=== PATIENT | female | born 1990 | race Caucasian/White ===

== ENCOUNTER 2018-01-16 23:44 | Outpatient (CLI) | payer BC, MEDICAID ==
[2018-01-17 00:53] LABS: APPEARANCE,URINE CLEAR; BILIRUBIN,URINE NEGATIVE (NEGATIVE); COLOR,URINE STRAW; GLUCOSE, URINE NEGATIVE (NEGATIVE); KETONES,URINE NEGATIVE (NEGATIVE); LEUKOCYTE ESTERASE,URINE NEGATIVE (NEGATIVE); NITRITE,URINE NEGATIVE (NEGATIVE); PROTEIN,URINE NEGATIVE (NEGATIVE); URINE SPECIFIC GRAVITY 1.009; UROBILINOGEN,URINE NEGATIVE mg/dL (<2.0)
[2018-01-17 01:05] LABS: URINE AMPHETAMINES SCREEN NEGATIVE; URINE BARBITURATES SCREEN NEGATIVE; URINE BENZODIAZEPINES SCREEN NEGATIVE; URINE COCAINE SCREEN NEGATIVE; URINE MARIJUANA (THC) SCREEN NEGATIVE; URINE METHADONE SCREEN NEGATIVE; URINE PHENCYCLIDINE SCREEN NEGATIVE
== END 2018-01-17 01:15 | disposition home or self-care (01) ==
LOC: LC 23:44
PROVIDERS: ATTEND Obstetrics & Gynecology
PROC: 4A1HXCZ Monitoring of Products of Conception, Cardiac Rate, External Approach (ICD-10-PCS; principal; 2018-01-16)
DX: O47.02 False labor before 37 completed weeks of gestation, second trimester (principal); Z3A.20 20 weeks gestation of pregnancy
CPT/HCPCS: 80307; 81001; 82962; 84112

== ENCOUNTER 2018-03-04 19:26 | Outpatient (CLI) | payer BC, MEDICAID ==
[2018-03-04 20:15] LABS: APPEARANCE,URINE CLEAR; BILIRUBIN,URINE NEGATIVE (NEGATIVE); COLOR,URINE YELLOW; GLUCOSE, URINE NEGATIVE (NEGATIVE); KETONES,URINE NEGATIVE (NEGATIVE); LEUKOCYTE ESTERASE,URINE NEGATIVE (NEGATIVE); NITRITE,URINE NEGATIVE (NEGATIVE); PROTEIN,URINE NEGATIVE (NEGATIVE); URINE SPECIFIC GRAVITY 1.026; UROBILINOGEN,URINE NEGATIVE mg/dL (<2.0)
[2018-03-04 20:32] LABS: URINE AMPHETAMINES SCREEN NEGATIVE; URINE BARBITURATES SCREEN NEGATIVE; URINE BENZODIAZEPINES SCREEN NEGATIVE; URINE COCAINE SCREEN NEGATIVE; URINE MARIJUANA (THC) SCREEN NEGATIVE; URINE METHADONE SCREEN NEGATIVE; URINE PHENCYCLIDINE SCREEN NEGATIVE
== END 2018-03-04 20:54 | disposition home or self-care (01) ==
LOC: LC 19:26
PROVIDERS: ATTEND Obstetrics & Gynecology Gynecology
PROC: 4A1HXCZ Monitoring of Products of Conception, Cardiac Rate, External Approach (ICD-10-PCS; principal; 2018-03-04)
DX: O47.02 False labor before 37 completed weeks of gestation, second trimester (principal); Z3A.27 27 weeks gestation of pregnancy
CPT/HCPCS: 81001; 59899; 80307; Q0114

== ENCOUNTER 2018-05-01 08:31 | Outpatient (CLI) | payer BC, MEDICAID ==
--- NOTE | 2018-05-01 09:24 | Non Stress Test Report ---
Non Stress Test Datetime Report Generated by CPN: 05/01/2018 09:24 DEMOGRAPHIC EGA NST: 35.5 INDICATION Indication for Study: Ordered by Provider MONITORING Monitor Explained: Monitor Explained; Test Explained; Patient Verbalized Understanding Time on Monitor: 05/01/2018 08:47 Time off Monitor: 05/01/2018 09:07 NST Duration: 20 NST INTERVENTIONS NST Interventions: PO Hydration Physician Notified NST: C Kruse, CNM BABY A: [id number] BABY A Movement : Present; Decreased Contraction Frequency : none FHR Baseline : 140 Accelerations : 15X15 Decelerations : None Variability : Moderate 6-25bpm NST Review: Meets Criteria for Reactive NST NST Review and Verified By : Radha Rufus RNC NST Results: Reactive NST REPORT Report Trigger: Send Report
== END 2018-05-01 09:27 | disposition home or self-care (01) ==
LOC: LC 08:31
PROVIDERS: ATTEND Student in an Organized Health Care Education/Training Program
PROC: 4A1HXCZ Monitoring of Products of Conception, Cardiac Rate, External Approach (ICD-10-PCS; principal; 2018-05-01)
DX: O36.8130 Decreased fetal movements, third trimester, not applicable or unspecified (principal); Z3A.35 35 weeks gestation of pregnancy
CPT/HCPCS: 59025

== ENCOUNTER 2018-05-25 18:46 | Outpatient (CLI) | payer BC, MEDICAID ==
[2018-05-25 19:34] LABS: APPEARANCE,URINE CLEAR; BILIRUBIN,URINE NEGATIVE (NEGATIVE); COLOR,URINE YELLOW; GLUCOSE, URINE NEGATIVE (NEGATIVE); KETONES,URINE NEGATIVE (NEGATIVE); LEUKOCYTE ESTERASE,URINE NEGATIVE (NEGATIVE); NITRITE,URINE NEGATIVE (NEGATIVE); PROTEIN,URINE NEGATIVE (NEGATIVE); URINE SPECIFIC GRAVITY 1.013; UROBILINOGEN,URINE NEGATIVE mg/dL (<2.0)
[2018-05-25 19:49] LABS: URINE AMPHETAMINES SCREEN NEGATIVE; URINE BARBITURATES SCREEN NEGATIVE; URINE BENZODIAZEPINES SCREEN NEGATIVE; URINE COCAINE SCREEN NEGATIVE; URINE MARIJUANA (THC) SCREEN NEGATIVE; URINE METHADONE SCREEN NEGATIVE; URINE PHENCYCLIDINE SCREEN NEGATIVE
--- NOTE | 2018-05-25 20:47 | Non Stress Test Report ---
Non Stress Test Datetime Report Generated by CPN: 05/25/2018 20:47 DEMOGRAPHIC EGA NST: 39.1 INDICATION Indication for Study: Ordered by Provider MONITORING Monitor Explained: Monitor Explained; Test Explained; Patient Verbalized Understanding Time on Monitor: 05/25/2018 19:10 Time off Monitor: 05/25/2018 19:35 NST Duration: 25 NST INTERVENTIONS NST Interventions: PO Hydration Physician Notified NST: Dr. Singh BABY A: [id number] BABY A Movement : Present Contraction Frequency : 1.5-3 FHR Baseline : 125 Accelerations : 15X15 Decelerations : None Variability : Moderate 6-25bpm NST Review: Meets Criteria for Reactive NST NST Review and Verified By : MELISSA CHOI Results: Reactive NST REPORT Report Trigger: Send Report
[2018-05-25] MEDS ORDERED: HYDROXYZINE PAMOATE 50 MG CAPSULE PO ONE (20:48)
[2018-05-25] MEDS: HYDROXYZINE PAMOATE 50 MG CAPSULE ONE (20:54)
== END 2018-05-25 20:55 | disposition home or self-care (01) ==
LOC: LC 18:46
PROVIDERS: ATTEND Obstetrics & Gynecology Gynecology
DX: Z34.90 Encounter for supervision of normal pregnancy, unspecified, unspecified trimester (principal)
CPT/HCPCS: 59025; 80307; 81005

== ENCOUNTER 2018-05-26 23:18 | Outpatient (CLI) | payer BC, MEDICAID ==
[2018-05-26 23:43] LABS: APPEARANCE,URINE CLOUDY; BILIRUBIN,URINE NEGATIVE (NEGATIVE); COLOR,URINE YELLOW; GLUCOSE, URINE >=500 mg/dL (NEGATIVE); KETONES,URINE 20 mg/dL (NEGATIVE); LEUKOCYTE ESTERASE,URINE TRACE (NEGATIVE); NITRITE,URINE NEGATIVE (NEGATIVE); PROTEIN,URINE NEGATIVE (NEGATIVE)
[2018-05-27 00:03] LABS: URINE AMPHETAMINES SCREEN NEGATIVE; URINE BARBITURATES SCREEN NEGATIVE; URINE BENZODIAZEPINES SCREEN NEGATIVE; URINE COCAINE SCREEN NEGATIVE; URINE MARIJUANA (THC) SCREEN NEGATIVE; URINE METHADONE SCREEN NEGATIVE; URINE PHENCYCLIDINE SCREEN NEGATIVE
--- NOTE | 2018-05-27 00:08 | Non Stress Test Report ---
Non Stress Test Datetime Report Generated by CPN: 05/27/2018 00:08 DEMOGRAPHIC EGA NST: 39.2 INDICATION Indication for Study: Ordered by Provider URINE RESULTS Urine Protein, NST: Negative Urine Ketones - NST: Positive Urine Glucose - NST: Positive MONITORING Monitor Explained: Monitor Explained; Test Explained; Patient Verbalized Understanding Time on Monitor: 05/26/2018 23:22 Time off Monitor: 05/27/2018 00:06 NST Duration: 44 NST INTERVENTIONS NST Interventions: None BABY A: [id number] BABY A Movement : Present Contraction Frequency : uterine irritability FHR Baseline : 140 Accelerations : 15X15 Decelerations : None Variability : Moderate 6-25bpm NST Review: Meets Criteria for Reactive NST NST Review and Verified By : Herbie López RN NST Results: Reactive NST REPORT Report Trigger: Send Report
[2018-05-27] MEDS ORDERED: HYDROXYZINE PAMOATE 50 MG CAPSULE PO ONE (00:14)
[2018-05-27] MEDS ORDERED: RINGERS SOLUTION,LACTATED 1,000 ML IV ONE (00:15)
[2018-05-27] MEDS ORDERED: HYDROXYZINE PAMOATE 50 MG CAPSULE ONE (00:16)
== END 2018-05-27 01:41 | disposition home or self-care (01) ==
LOC: LC 23:18
PROVIDERS: ATTEND Obstetrics & Gynecology
PROC: 4A1HXCZ Monitoring of Products of Conception, Cardiac Rate, External Approach (ICD-10-PCS; principal; 2018-05-26)
DX: O47.1 False labor at or after 37 completed weeks of gestation (principal); Z3A.39 39 weeks gestation of pregnancy
CPT/HCPCS: 59025; 80307; 81005; 84112

== ENCOUNTER 2018-06-01 22:10 | Outpatient (CLI) | payer BC, MEDICAID ==
[2018-06-01 22:30] LABS: APPEARANCE,URINE CLEAR; BILIRUBIN,URINE NEGATIVE (NEGATIVE); COLOR,URINE STRAW; GLUCOSE, URINE NEGATIVE (NEGATIVE); KETONES,URINE NEGATIVE (NEGATIVE); LEUKOCYTE ESTERASE,URINE NEGATIVE (NEGATIVE); NITRITE,URINE NEGATIVE (NEGATIVE); PROTEIN,URINE NEGATIVE (NEGATIVE); URINE SPECIFIC GRAVITY 1.003; UROBILINOGEN,URINE NEGATIVE mg/dL (<2.0)
[2018-06-01 22:45] LABS: URINE AMPHETAMINES SCREEN NEGATIVE; URINE BENZODIAZEPINES SCREEN NEGATIVE; URINE COCAINE SCREEN NEGATIVE; URINE MARIJUANA (THC) SCREEN NEGATIVE; URINE METHADONE SCREEN NEGATIVE; URINE PHENCYCLIDINE SCREEN NEGATIVE
[2018-06-01 22:49] LABS: URINE BARBITURATES SCREEN UNCONFIRMED POSITIVE
[2018-06-01] MEDS ORDERED: HYDROXYZINE PAMOATE 50 MG CAPSULE PO ONE (23:37)
[2018-06-01] MEDS ORDERED: HYDROXYZINE PAMOATE 50 MG CAPSULE ONE (23:39)
--- NOTE | 2018-06-02 00:21 | Non Stress Test Report ---
Non Stress Test Datetime Report Generated by CPN: 06/02/2018 00:21 DEMOGRAPHIC EGA NST: 40.1 INDICATION Indication for Study: Ordered by Provider MONITORING Monitor Explained: Monitor Explained; Test Explained; Patient Verbalized Understanding Time on Monitor: 06/01/2018 22:25 Time off Monitor: 06/02/2018 23:45 NST Duration: 1520 NST INTERVENTIONS NST Interventions: PO Hydration Physician Notified NST: Ethan BABY A: [id number] BABY A Movement : Present Contraction Frequency : 2-6 FHR Baseline : 125 Accelerations : 15X15 Decelerations : None Variability : Moderate 6-25bpm NST Review: Meets Criteria for Reactive NST NST Review and Verified By : alma guillen NST REPORT Report Trigger: Send Report
== END 2018-06-01 23:58 | disposition home or self-care (01) ==
LOC: LC 22:10
PROVIDERS: ATTEND Obstetrics & Gynecology
PROC: 4A1HXCZ Monitoring of Products of Conception, Cardiac Rate, External Approach (ICD-10-PCS; principal; 2018-06-01)
DX: O47.1 False labor at or after 37 completed weeks of gestation (principal); O48.0 Post-term pregnancy; Z3A.40 40 weeks gestation of pregnancy
CPT/HCPCS: 59025; 81005; 80307; 80345; G0480

== ENCOUNTER 2018-06-08 12:53 | Inpatient (IN) | payer BC, MEDICAID ==
[2018-06-08 14:57] LABS: APPEARANCE,URINE SLIGHTLY-CLOUDY; BILIRUBIN,URINE NEGATIVE (NEGATIVE); COLOR,URINE YELLOW; GLUCOSE, URINE NEGATIVE (NEGATIVE); KETONES,URINE NEGATIVE (NEGATIVE); LEUKOCYTE ESTERASE,URINE TRACE (NEGATIVE); NITRITE,URINE NEGATIVE (NEGATIVE); PROTEIN,URINE NEGATIVE (NEGATIVE); URINE SPECIFIC GRAVITY 1.017; UROBILINOGEN,URINE NEGATIVE mg/dL (<2.0)
--- NOTE | 2018-06-08 15:02 | Admission Physical ---
Datetime Report Generated by CPN: 06/08/2018 15:01 CURRENT ADMISSION Hx Assessment: The History has been Reviewed and is Current Chief Complaint: Uterine Contractions Indication for Induction: Not Applicable Admit Impression : Postterm, Intrauterine ; Active Labor Admit Plan: Admit to Unit; Initiate Labor Protocol ALLERGIES Medication Allergies: No Medication Allergies: No Known Allergies (05/25/2018) Latex: No Latex Allergies Food Allergies: n/a Environmental Allergies: n/a OBSTETRICAL HISTORY EDC: 05/31/2018 00:00 : 5 Para: 1 Term: 1 IAB: 3 Ectopic: 0 Livin Cesareans: 0 VBACs: 0 Multiple Births: 0 Gestational Diabetes: No Rh Sensitization: No Incompetent Cervix: No JAKI: No Infertility: No ART Treatment: No Uterine Anomaly: No IUGR: No Hx Previous C/S: No Macrosomia: No Hx Loss/Stillborn: No PIH: No Hx : No Placenta Previa/Abruption: No Depression/PP Depression: No PTL/PROM: No Post Hemorrhage: No Current Procedures: Ultrasound Obstetrical History Comments: G1 G2 G3 G4 G5 - current SEE RECORDS Alcohol: No Marijuana : No Cocaine: No Other Illicit Drugs: No Cigarettes: Never Smoker. 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 Heart Disease: No Hosp/Surgery: Yes Autoimmune Disorder: No Anesthetic Complications: No Kidney Disease: No Abnormal Pap Smear: No Neuro/Epilepsy: No Psychiatric Disorders: No Other Medical Diseases: No Hepatitis/Liver Disease: No Significant Family History: No Varicosities/Phlebitis: No Trauma/Violence : No Thyroid Dysfunction: No Medical History Comments: tonsilectomy, urethral injury, childbirth INFECTIOUS HISTORY Gonorrhea: No Genital Herpes: No Chlamydia: No Tuberculosis: No Syphilis: No Hepatitis: No HIV/AIDS Exposure: No Rash or Viral Illness: No HPV: No PHYSICAL EXAM General: Normal HEENT: Normal Neurologic: Normal Thyroid: Normal Heart: Normal Lungs: Normal Breast: Normal Back: Normal Abdomen: Normal Genitourinary Exam: Normal Extremities: Normal DTRs: Normal Pelvic Type: Adequate Physical Exam Comments: GBS neg Pelvis proven 7 lbs MEMBRANES Membranes: Intact FETUS A EGA: 41.1 Monitoring: External US Accelerations: 15X15 Decelerations: None FHR Category: Category I Admit Comment: Pt admitted in labor, was waiting at home to be called in for IOL, uc's q2-4, Cat 1 strip POC discussed GBS neg, POC discussed with Dr. Godfrey PLANS FOR LABOR AND DELIVERY Labor and Delivery: None Pain Management: Epidural Feeding Preference: Breast Benefit of Breast Feed Discussed: Yes Circumcision: N/A INFORMED CONSENT Assignment: Renzo Godfrey MD Signature: with User ID: Charlotte : with User ID: Charlotte
[2018-06-08] MEDS ORDERED: RINGERS SOLUTION,LACTATED 1,000 ML IV PRN (15:10)
[2018-06-08] MEDS ORDERED: RINGERS SOLUTION,LACTATED 1,000 ML IV ONE (15:10)
[2018-06-08 15:29] LABS: URINE AMPHETAMINES SCREEN NEGATIVE; URINE BENZODIAZEPINES SCREEN NEGATIVE; URINE COCAINE SCREEN NEGATIVE; URINE MARIJUANA (THC) SCREEN NEGATIVE; URINE METHADONE SCREEN NEGATIVE; URINE PHENCYCLIDINE SCREEN NEGATIVE
[2018-06-08 15:34] LABS: URINE BARBITURATES SCREEN UNCONFIRMED POSITIVE
[2018-06-08] MEDS ORDERED: ONDANSETRON HCL INJ/PF 4 MG/2 ML SDV ONE (15:45)
[2018-06-08 16:16] LABS: ABSOLUTE LYMPHOCYTES (AUTO) 1.6 10^3/uL (0.5-4.7); ABSOLUTE MONOCYTES (AUTO) 0.6 10^3/uL (0.1-1.4); ABSOLUTE NEUT (AUTO) 14.3 10^3/uL (1.7-8.2); BASOPHILS % (AUTO) 0.3 % (0-2); EOSINOPHILS % (AUTO) 0.2 % (0-6); HEMATOCRIT 33.5 % (36.0-47.0); HEMOGLOBIN 11.3 g/dL (12.0-15.5); LYMPHOCYTES % (AUTO) 9.9 % (13-45); MEAN CORPUSCULAR HEMOGLOBIN 30.1 pg (27.0-33.4); MEAN CORPUSCULAR HGB CONC 33.9 g/dL (32.0-36.0); MEAN CORPUSCULAR VOLUME 89 fl (80-97); MONOCYTES % (AUTO) 3.5 % (3-13); PLATELET COUNT 228 10^3/uL (150-450); RED BLOOD COUNT 3.77 10^6/uL (3.72-5.28); RED CELL DISTRIBUTION WIDTH 14.6 % (11.5-14.0); SEGMENTED NEUTROPHILS % (AUTO) 86.1 % (42-78); TOTAL CELLS COUNTED % (AUTO) 100 %; WHITE BLOOD COUNT 16.6 10^3/uL (4.0-10.5)
[2018-06-08] MEDS ORDERED: ONDANSETRON HCL INJ/PF 4 MG/2 ML SDV IV ONE (16:30)
[2018-06-08] MEDS ORDERED: FENTANYL CITRATE INJ/PF 100 MCG/2 ML AMPUL ONE (16:41)
[2018-06-08] MEDS ORDERED: EPHEDRINE SULFATE INJ 50 MG/1 ML AMPULE ONE (16:41)
[2018-06-08] MEDS ORDERED: PHENYLEPHRINE HCL INJ/PF 10 MG/1 ML SDV ONE (16:41)
[2018-06-08] MEDS ORDERED: BUPIVACAINE HCL 0.25 % INJ/PF (2.5 MG/1 ML) 30 ML VIAL ONE (16:41)
[2018-06-08] MEDS ORDERED: FENTANYL/BUPIVACAINE/NS/PF 300 MCG/150 ML RTUINJ EPI ONE (16:42)
[2018-06-08] MEDS ORDERED: LIDOCAINE 1.5%/EPINEPHRINE INJ-PF 30 ML SDV ONE (16:43)
--- NOTE | 2018-06-08 16:51 | L&D Progress Notes ---
PROGRESS NOTES Datetime Report Generated by CPN: 06/08/2018 16:50 PROGRESS NOTE Comment: pt crying out in pain SROM, clear fluid, waiting for epidural, IV bolus, cx unchanged LAST VAGINAL EXAM-NURSING Dilitation: 3.0 Dilitation: 4.0 Dilitation: 3.5 Dilitation: unchanged Dilitation: 1.5 Dilitation: 1.0 Dilitation: 1.0 Dilitation: unchanged Dilitation: 1.0 Effacement: 90 Effacement: 100 Effacement: 90 Effacement: 60 Effacement: 25 Effacement: 25 Effacement: 25 Station: 0 Station: 0 Station: 0 Station: -2 Station: -2 Station: -2 Station: -2 Contractions: x3 Contractions: utd. will adjust monitor Contractions: uterine irritability Contractions: uterine irritability Contractions: uterine irritability Contractions: pt unsure Contractions: Uterine Irritability MEMBRANES Membranes: Intact FETUS A : 41.1 SIGNATURE SIGNATURE: [id number];[id number];[id number] SIGNATURE: [id number];14,[id number] SIGNATURE: [id number] SIGNATURE: [id number] SIGNATURE: 14,[id number] SIGNATURE: 14,[id number] Assignment: Renzo Godfrey MD Signature: with User ID: [email or web address] : with User ID: [email or web address]
[2018-06-08] MEDS ORDERED: MISOPROSTOL 0.2 MG TABLET ONE (16:54)
[2018-06-08] MEDS ORDERED: OXYTOCIN/NORMAL SALINE 20 UNIT/1,000 ML RTUINJ ONE (16:54)
[2018-06-08] MEDS ORDERED: LIDOCAINE 1% INJ-PF (10 MG/ML) 30 ML SDV ONE (16:54)
[2018-06-08] MEDS ORDERED: ACETAMINOPHEN WITH CODEINE #3 TABLET PO PRN (21:08)
[2018-06-08] MEDS ORDERED: GLYCERIN/WITCH HAZEL LEAF 1 EACH MED..PAD TP PRN (21:08)
[2018-06-08] MEDS ORDERED: BENZOCAINE/MENTHOL AEROSOL SPRAY 56 ML TOP PRN (21:08)
[2018-06-08] MEDS ORDERED: PROMETHAZINE HCL 25 MG SUPP.RECT PR PRN (21:08)
[2018-06-08] MEDS ORDERED: DIBUCAINE 1% OINTMENT 28 GM TP PRN (21:08)
[2018-06-08] MEDS ORDERED: NA PHOS,M-B/NA PHOS,DI-BA (ADULT) 133 ML ENEMA PR PRN (21:08)
[2018-06-08] MEDS ORDERED: DIPHENHYDRAMINE HCL 25 MG CAPSULE PO PRN (21:08)
[2018-06-08] MEDS ORDERED: MEASLES,MUMPS&RUBELLA VACC/PF 0.5 ML VIAL SUBCUT PRN (21:08)
[2018-06-08] MEDS ORDERED: PSEUDOEPHEDRINE HCL 30 MG TABLET PO PRN (21:08)
[2018-06-08] MEDS ORDERED: PROMETHAZINE HCL 25 MG TABLET PO PRN (21:08)
[2018-06-08] MEDS ORDERED: MAGNESIUM HYDROXIDE SUSP 30 ML UDCUP PO PRN (21:08)
[2018-06-08] MEDS ORDERED: OXYTOCIN/NORMAL SALINE 20 UNIT/1,000 ML RTUINJ IV PRN (21:08)
[2018-06-08] MEDS ORDERED: ZOLPIDEM TARTRATE 5 MG TABLET PO PRN (21:08)
[2018-06-08] MEDS ORDERED: DIPH/PERTUSS(ACELL)/TETANUS VAC/PF 0.5 ML SYR (>=10YO) IM PRN (21:08)
[2018-06-08] MEDS ORDERED: ACETAMINOPHEN 650 MG SUPP.RECT PR PRN (21:08)
[2018-06-08] MEDS ORDERED: PROMETHAZINE HCL INJ 25 MG/1 ML VIAL IV PRN (21:08)
--- NOTE | 2018-06-08 21:21 | Warning Signs in Babies ---
VOD Warning Signs Datetime Report Generated by [facility]: 06/08/2018 21:21 VOD#608 -Warning Signs in Babies: Viewed with Parent(s)/Family (01/16/2018 23:45:ELIO Marion )
[2018-06-08] MEDS ORDERED: IBUPROFEN 800 MG TABLET ONE (21:45)
[2018-06-08] MEDS ORDERED: FAMOTIDINE 20 MG TABLET ONE (21:45)
[2018-06-08] MEDS: FAMOTIDINE 20 MG TABLET PO SCH (21:46)
[2018-06-08] MEDS: IBUPROFEN 800 MG TABLET PO SCH (21:46)
--- NOTE | 2018-06-09 00:19 | Delivery Summary ---
Del Sum A-C Datetime Report Generated by CPN: 06/09/2018 00:19 DELIVERY PERSONNEL DELIVERY PERSONNEL: [id number] Delivery Doctor:: Renzo Godfrey MD Labor and Delivery Nurse:: Linda James RNspray mixer Nurse:: Blanche Shahid RN Sales And Service Specialist/COUNTER HAND: Audi MONIKA ValentineA MATERNAL INFORMATION Delivery Anesthesia: Epidural Medications After Delivery: Pitocin Bolus-Please Comment Meds After Delivery Comment: Pitocin 20mu in 1000LR bolus Estimated Blood Loss (ml): 250 Maternal Complications: None LABOR SUMMARY EDC: 05/31/2018 00:00 No. Babies in Womb: 1 Attempted: No Labor Anesthesia: Epidural LABOR INFORMATION Reason for Induction: Post Dates Onset of Labor: 06/08/2018 17:44 Complete Dilatation: 06/08/2018 20:37 Oxytocin: N/A Group B Beta Strep: negative Antibiotics # of Doses: na Antibiotics Time of Last Dose: na Name of Antibiotic Given: na Steroids Given: None Reason Steroids Not Administered: Not Applicable MEMBRANES Membranes Rupture Method: Spontaneous Rupture of Membranes: 06/08/2018 16:20 Length of Rupture (hr): 4.52 Amniotic Fluid Color: Clear Amniotic Fluid Amount: Moderate Amniotic Fluid Odor: Normal STAGES OF LABOR Stage 1 hr: 2 Stage 1 min: 53 Stage 2 hr: 0 Stage 2 min: 14 Stage 3 hr: 0 Stage 3 min: 5 Total Time in Labor hr: 3 Total Time in Labor min: 12 VAGINAL DELIVERY Episiotomy: None Laceration #1: None Laceration Extension #1: N/A Laceration Repair: Not Applicable Sponge Count Correct: Vaginal Sweep Performed Sharps Count Correct: Yes CSECTION DELIVERY Primary Indication: N/A Secondary Indication: N/A CSection Incidence: N/A Labor: N/A Elective: N/A CSection Incision: N/A BABY A INFORMATION Delivery Date/Time: 06/08/2018 20:51 Method of Delivery: Vaginal Born in Route : No : N/A Forceps: N/A Vacuum Extraction: N/A Shoulder Dystocia : No PRESENTATION/POSITION BABY A Presentation: Cephalic Cephalic Presentation: Vertex Vertex Position: Left Occipital Anterior Breech Presentation: N/A PLACENTA INFORMATION BABY A Placenta Delivery Time : 06/08/2018 20:56 Placenta Method of Delivery: Spontaneous Placenta Status: Delivered SCORES BABY A Heart Rate 1 min: >100 bpm Resp Effort 1 min: Good Cry Reflex Irritability 1 min: Cough or Sneeze or Pulls Away Muscle Tone 1 min: Active Motion Color 1 min: Body [place], Extremities Blue Resuscitation Effort 1 min: Tactile Stimulation SCORE 1 MIN: 9 Heart Rate 5 min: >100 bpm Resp Effort 5 min: Good Cry Reflex Irritability 5 min: Cough or Sneeze or Pulls Away Muscle Tone 5 min: Active Motion Color 5 min: Body [place], Extremities Blue Resuscitation Effort 5 min: Tactile Stimulation SCORE 5 MIN: 9 INFANT INFORMATION BABY A Gestational Age at Delivery: 41.1 Gestational Status: Late Term- 41- 41.6 Weeks Infant Outcome : Liveborn Condition : Stable Infant Sex: Female IDENTIFICATION BABY A Infant Verification Date/Time: 06/08/2018 21:03 ID Band Number: [id number] Mother's Name Verified: Yes RN Verifying : SVance, RN Additional Verifying Personnel: LAURA Robles WEIGHT/LENGTH BABY A Birthweight (gm): 3645 Infant Weight (lb): 8 Infant Weight (oz): 1 Length (in): 20.00 Infant Length (cm): 50.80 CORD INFORMATION BABY A No. Cord Vessels: 3 Nuchal Cord : N/A Cord Blood Taken: Yes-For Storage (Mom's Blood type +) Infant Suction: Mouth; Nose ASSESSMENT BABY A Infant Complications: None Physical Findings at Delivery: Within Normal Limits Infant Respirations: Appears Normal Skin to Skin: Yes Skin to Skin Time (min): 60 Installation Tech/ALS Called : No Transferred To: Remains with Mother BABY B INFORMATION : N/A SIGNATURES Signature: with User ID: Adria
[2018-06-09 06:27] LABS: HEMATOCRIT 30.5 % (36.0-47.0); HEMOGLOBIN 10.3 g/dL (12.0-15.5); MEAN CORPUSCULAR HGB CONC 33.9 g/dL (32.0-36.0); MEAN CORPUSCULAR VOLUME 86 fl (80-97); PLATELET COUNT 214 10^3/uL (150-450); RED BLOOD COUNT 3.57 10^6/uL (3.72-5.28); RED CELL DISTRIBUTION WIDTH 14.7 % (11.5-14.0); WHITE BLOOD COUNT 17.6 10^3/uL (4.0-10.5)
[2018-06-09] MEDS: IBUPROFEN 800 MG TABLET PO SCH ×3 (06:31→22:14)
[2018-06-09] MEDS: ACETAMINOPHEN WITH CODEINE #3 TABLET PO PRN ×3 (08:16→23:18)
[2018-06-09] MEDS: FERROUS SULFATE 325 MG TABLET PO SCH ×2 (09:50→17:40)
[2018-06-09] MEDS: DOCUSATE SODIUM 100 MG CAPSULE PO SCH ×2 (09:50→17:40)
[2018-06-09] MEDS: SENNOSIDES/DOCUSATE 8.6-50 MG 1 EACH TABLET PO SCH (09:50)
[2018-06-09] MEDS: PRENATAL VITAMIN W DHA CAPSULE PO SCH (09:50)
[2018-06-09] MEDS: FAMOTIDINE 20 MG TABLET PO SCH ×2 (09:51→22:14)
--- NOTE | 2018-06-09 10:12 | PDOC PROGRESS REPORT ---
Subjective-OB Progress Note for:: 06/09/18 Subjective: Doing well, no c/o, voiding, scant bleeding, Physical Exam (OB) Vital Signs: Temp Pulse Resp BP Pulse Ox 98.7 F 121 H 16 127/72 H 97 06/08/18 23:11 06/08/18 23:11 06/08/18 23:11 06/08/18 23:11 06/08/18 23:11 Intake & Output 06/08/18 06/09/18 06/10/18 06:59 06:59 06:59 Weight 107.1 kg - Lochia Lochia Amount: Small 10-25 ml Lochia Color: Rubra/Red - Abdomen Description: Soft, Round Hernia Present: No Fundal Description: Firm, Midline Fundal Height: u/u - u/2 Objective-Diagnostic Laboratory: 06/09/18 06:12 06/08/18 06/08/18 06/08/18 13:00 15:54 15:54 WBC 16.6 H RBC 3.77 Hgb 11.3 L Hct 33.5 L MCV 89 MCH 30.1 MCHC 33.9 RDW 14.6 H Plt Count 228 Seg Neutrophils % 86.1 H Lymphocytes % 9.9 L Monocytes % 3.5 Eosinophils % 0.2 Basophils % 0.3 Absolute Neutrophils 14.3 H Absolute Lymphocytes 1.6 Absolute Monocytes 0.6 Absolute Eosinophils 0.0 Absolute Basophils 0.0 Urine Color YELLOW Urine Appearance SLIGHTLY-CLOUDY Urine pH 7.0 Ur Specific [place] 1.017 Urine Protein NEGATIVE Urine Glucose (UA) NEGATIVE Urine Ketones NEGATIVE Urine Blood NEGATIVE Urine Nitrite NEGATIVE Ur Leukocyte Esterase TRACE H Blood Type A POSITIVE Antibody Screen NEGATIVE 06/09/18 06:12 WBC 17.6 H RBC 3.57 L Hgb 10.3 L Hct 30.5 L MCV 86 MCH 29.0 MCHC 33.9 RDW 14.7 H Plt Count 214 Seg Neutrophils % Lymphocytes % Monocytes % Eosinophils % Basophils % Absolute Neutrophils Absolute Lymphocytes Absolute Monocytes Absolute Eosinophils Absolute Basophils Urine Color Urine Appearance Urine pH Ur Specific [place] Urine Protein Urine Glucose (UA) Urine Ketones Urine Blood Urine Nitrite Ur Leukocyte Esterase Blood Type Antibody Screen Assessment and Plan(PN) - Assessment and Plan (1) Normal vaginal delivery Is this a current diagnosis for this admission?: Yes - Time Spent with Patient Time with patient: Less than 15 minutes Medications reviewed and adjusted accordingly: Yes - Disposition Anticipated Discharge: Home Within: within 24 hours
[2018-06-10] MEDS: IBUPROFEN 800 MG TABLET PO SCH (05:31)
[2018-06-10 08:10] VITALS: BP 133/88
[2018-06-10] MEDS: PRENATAL VITAMIN W DHA CAPSULE PO SCH (09:06)
[2018-06-10] MEDS: SENNOSIDES/DOCUSATE 8.6-50 MG 1 EACH TABLET PO SCH (09:07)
[2018-06-10] MEDS: DOCUSATE SODIUM 100 MG CAPSULE PO SCH (09:07)
[2018-06-10] MEDS: FAMOTIDINE 20 MG TABLET PO SCH (09:07)
[2018-06-10] MEDS: FERROUS SULFATE 325 MG TABLET PO SCH (09:07)
--- NOTE | 2018-06-10 10:55 | PDOC PROGRESS REPORT ---
Subjective-OB Progress Note for:: 06/10/18 Subjective: Doing well, no c/o, ready to go home Physical Exam (OB) Vital Signs: Temp Pulse Resp BP Pulse Ox 97.8 F 81 16 133/88 H 97 06/10/18 08:00 06/10/18 08:00 06/10/18 08:00 06/10/18 08:00 06/10/18 08:00 Intake & Output 06/09/18 06/10/18 06/11/18 06:59 06:59 06:59 Intake Total 600 Balance 600 Weight 107.1 kg - PIH/Pre-Eclampsia DTR's: 2 + Clonus: Negative Headache: Absent Epigastric Pain: No Visual Changes: No - Lochia Lochia Amount: Small 10-25 ml Lochia Color: Rubra/Red - Abdomen Description: Soft, Round Hernia Present: No Fundal Description: Firm Fundal Height: u/u - u/2 Objective-Diagnostic Laboratory: 06/09/18 06:12 Assessment and Plan(PN) - Assessment and Plan (1) Normal vaginal delivery Is this a current diagnosis for this admission?: Yes - Time Spent with Patient Time with patient: Less than 15 minutes Medications reviewed and adjusted accordingly: Yes - Disposition Anticipated Discharge: Home Within: within 24 hours
--- NOTE | 2018-06-10 10:58 | PDOC DISCHARGE SUMMARY ---
Final Diagnosis Discharge Date: 06/10/18 - Final Diagnosis (1) Normal vaginal delivery Is this a current diagnosis for this admission?: Yes Discharge Data - Discharge Medication Home Medications: Vit Calc,Iron,Folic [ Vitamins] 1 each PO DAILY 01/17/18 Gestational Age: 41.1 Reason(s) for Admission: Onset of Labor Procedures: NST, Ultrasound Intrapartum Procedure(s): Spontaneous Vaginal Delivery - Diagnosis Test Laboratory: Temp Pulse Resp BP Pulse Ox 97.8 F 81 16 133/88 H 97 06/10/18 08:00 06/10/18 08:00 06/10/18 08:00 06/10/18 08:00 06/10/18 08:00 06/08/18 06/08/18 06/09/18 13:00 15:54 06:12 RBC 3.77 3.57 L Hgb 11.3 L 10.3 L Hct 33.5 L 30.5 L Urine Opiates Screen NEGATIVE - Discharge information/Instructions Discharge Activity: Activity As Tolerated, No Lifting Over 10 Pounds, No Lifting/Push/Pulling, Pelvic Rest Discharge Diet: As Tolerated, Regular Disposition: HOME, SELF-CARE Follow up with: [facility] in: 2, 4, Weeks - BP check
== END 2018-06-10 12:40 | disposition home or self-care (01) | DRG 807 ==
LOC: LC 12:53 → LR 15:16 → 2S 23:02
PROVIDERS: ADMIT Obstetrics & Gynecology; ATTEND Obstetrics & Gynecology
PROC: 10E0XZZ Delivery of Products of Conception, External Approach (ICD-10-PCS; principal; 2018-06-08)
PROC: 4A1HXCZ Monitoring of Products of Conception, Cardiac Rate, External Approach (ICD-10-PCS; 2018-06-08)
DX: O48.0 Post-term pregnancy (principal); Z3A.41 41 weeks gestation of pregnancy; Z37.0 Single live birth
CPT/HCPCS: 36415; 80307; 81005; 85025; 85027; 86592; 86850; 86900; 86901; 94760; J2370; J2405; J2590; J3010; J3490